=== PATIENT | male | born 1955 | race Caucasian/White ===

== ENCOUNTER 2020-09-01 06:21 | Day surgery (SDC) | payer OTHER ==
[~2020-09-01] VITALS: Ht 177.8 cm; Wt 94.5 kg
[2020-09-01] MEDS ORDERED: BICA50TA7 PO (06:48)
[2020-09-01 07:13] VITALS: BP 121/88
[2020-09-01] MEDS ORDERED: clindamycin 600mg/D5W 50ml 50 ML IV ONE (08:00)
[2020-09-01] MEDS ORDERED: normal saline 1000ml 1,000 ML IV SCH (08:05)
[2020-09-01] MEDS ORDERED: LIDOcaine 1%/PF 5ML 10 MG/ML VIAL ONE (08:41)
[2020-09-01] MEDS ORDERED: iohexol 300 MG/1 ML 50ml polymer ONE (08:41)
[2020-09-01] MEDS ORDERED: fentaNYL/PF 50MCG/1 ML 2ML syringe ONE (08:41)
[2020-09-01] MEDS ORDERED: midazolam 1 mg/ML 2ml injection ONE (08:41)
[2020-09-01 09:50] VITALS: BP 122/79
--- NOTE | 2020-09-01 09:58 | NUR ---
Pt back in room. VS stable as charted. Pt sitting up in bed. Drsg CD&I, urostomy tube draining by gravity.
[2020-09-01 10:05] VITALS: BP 122/79
[2020-09-01 10:20] VITALS: BP 102/64
--- NOTE | 2020-09-01 10:30 | NUR ---
Pt's daughter is on the phone directly speaking to Dr. Sorenson about pt follow up and neph tube care. Daughter reports all of her questions were answered by Dr. Sorenson and she will be following up with Dr. Ibarra.
[2020-09-01 10:35] VITALS: BP 118/68
[2020-09-01 11:00] VITALS: BP 116/58
== END 2020-09-01 11:00 | disposition home or self-care (01) ==
LOC: SSTAY O 06:21
PROVIDERS: ATTEND Radiology Vascular & Interventional Radiology
DX: N13.1 Hydronephrosis with ureteral stricture, not elsewhere classified (principal); C61 Malignant neoplasm of prostate; I10 Essential (primary) hypertension; N40.0 Benign prostatic hyperplasia without lower urinary tract symptoms; Z88.0 Allergy status to penicillin; Z79.899 Other long term (current) drug therapy
CPT/HCPCS: 50432; 99152; 99153; C1729; C1769; J2250; J3010; J7030; Q9967; J3490